=== PATIENT | female | born 1935 | race Caucasian/White ===

== ENCOUNTER → 2018-01-29 | Outpatient (CLI) | payer MEDICARE ==
[~2018-01-29] VITALS: Ht 172.7 cm; Wt 56.2 kg
[~2018-01-29] MED LIST: ACETAMINOPHEN650 M5 PO; ALENDRONATE PO; ASPIRIN325 PO; BETIMOL15 ML OP; BRIMONIDINE TAR1 BO1 OP; CENTRUM SILVER1 EAC4 PO; COUMADIN 5 MG TA5 M1 PO; COZAAR 50 MG TA50 M2 PO; FISH OIL 1,001000 M2; LUMIGAN2.5 M1 OP; PEPCID40 MG PO; PROLIA60 MG/1 ML; SOTALOL 120 MG120 MG PO; TRAVATAN 0.004%5 ML OP; VITAMIN D1000 UNI1; XALATAN2.5 ML OPHTHALMIC; [UNRECOGNIZED DRUG - OTHER]
[2018-01-29 10:30] VITALS: BP 149/75
[2018-01-29 10:36] LABS: HEMATOCRIT 43.8 % (37.0-47.0); HEMOGLOBIN 14.5 gm/dL (12.0-15.0); MCH 32.2 pg (26.0-34.0); MCV 97.5 fL (80.0-100.0); MPV 13.3 fl. (7.2-11.1); RBC 4.49 mil/uL (4.20-5.00); WBC 6.7 thou/uL (4.0-11.0)
[2018-01-29 10:45] LABS: APTT 33.4 Seconds (25.0-31.3); CALCIUM 9.3 mg/dL (8.5-10.1); CREATININE 0.9 mg/dL (0.6-1.3); POTASSIUM 4.1 mmol/L (3.5-5.1); PROTIME 28.5 Seconds (9.20-11.50)
[2018-01-29 11:55] VITALS: BP 143/67
--- NOTE | 2018-02-12 16:28 | CARD ---
[address] [address] CARDIAC CATH REPORT Name: GABE PHOENIX Room: [facility]#: [id number] Admission: 01/29/18 Attend Phys: Vikas Newman MD Discharge: Date of : 34 Report #: [id number] THIS REPORT FOR: //name// APPROVED REPORT Study performed: 01/29/2018 10:29:54 Patient Status: Out-Patient Room #: Event Personnel: Vikas Newman Distance Learning Program Coordinator, Araceli Medina RN RN, Elijah Hannah Monitor, Kendall Wei (Mark) Eamon Harris Diane Monitor Exam: Generator Change for a Dual Chamber Permanent Pacemaker Indications: dual chamber pacemaker generator at elective replacement The patient is a 82 year-old female with a history of symptomatically bradycardia status post dual-chamber pacemaker placement. Conscious Sedation Start time: 11:09 End Time: 11:45 Fentanyl 25 mcg Versed 1 mg Implanted Devices: Biotronik Eluna 8 DRT, model #585861, serial #[id number] dual-chamber pulse generator Explanted Devices: Medtronic Adapta, model number ADD RS1, serial number and [id number] dual-chamber pulse generator Procedure The patient underwent informed consent. We discussed the details of the procedure including the risks, which include, but not limited to bleeding, infection, vascular damage, cardiac perforation, and pneumothorax. She understood these risks and was willing to proceed. As such, she was brought to the EP/Cardiac Catheterization laboratory in a fasting and sedated state and prepped and draped in a The patient underwent conscious sedation, with no related complications. The patient was brought to the EP/Cardiac Catheterization laboratory and the left chest and shoulder were prepped and draped in a sterile manner. During this case, Fluoroscopy and visipaque 10cc were used for imaging. After informed consent was obtained the patient was brought to the interventional radiology laboratory. [place] [address] CARDIAC CATH REPORT Name: TROYRHONDA PRIETORAD Hicks Room: [facility]#: [id number] Admission: 01/29/18 Attend Phys: Vikas Newman MD Discharge: Date of : 34 Report #: [id number] with 2% lidocaine. After an initial incision was made over the existing pulse generator the generator was explanted using electrocautery and blunt dissection. The generator was detached from the atrial and ventricular leads. The atrial and ventricular leads were interrogated and found to be functioning appropriately. The device pocket was flushed with antibiotic solution. A new dual-chamber pulse generator was attached the atrial and ventricular lead. The pulse generator and redundant leads were then placed within the device pocket. The deep tissues were closed with interrupted stitches of 20 absorbable suture. The skin incision was then closed with a single subcuticular stitch of 40 absorbable suture. Several Steri-Strips were placed across the incision and a sterile Telfa dressing covered with a Tegaderm. The patient tolerated the procedure well without complication. Electrode Parameters P Wave: 1.10 mV R Wave: 7.50 mV Atrial Threshold: 1.0 V at 0.40 ms. Ventricular Threshold: 0.6 V at 0.40 ms. 0.6 V at 0.40 ms. Atrial Resistance: 468 ohms Ventricular Resistance: 507 ohms Conclusion 1. Dual chamber pulse generator at elective replacement. 2. Successfull generator replacement. Recommendations 1. Follow up site check in 1 week. <ELECTRONICALLY SIGNED> By: Vikas Newman MD, FACC 02/12/18 1628 27 [id number] Newman MD, FACC /INF
--- NOTE | 2018-02-15 16:18 | H ---
[address] [address] HISTORY AND PHYSICAL Name: GABE PHOENIX Room: [facility]#: [id number] Admission: 01/29/18 Attend Phys: Vikas Newman MD Discharge: Date of : 34 Report #: [id number] THIS REPORT FOR: //name// CC: Adam Atkinson MD [facility] Vikas Leon MD REASON FOR ADMISSION: Dual-chamber pacemaker generator replacement. HISTORY OF PRESENT ILLNESS: The patient is a very pleasant 82-year-old with history of paroxysmal atrial fibrillation and sick sinus syndrome. She has remotely status post dual-chamber pacemaker placement. Her dual chamber pulse generator has reached elective replacement. The patient presents for generator replacement. Presently, she is stable from a cardiac standpoint. She is without cardiac complaint. She is not having palpitations or chest pain. PAST MEDICAL HISTORY: 1. Paroxysmal atrial fibrillation. 2. Sick sinus syndrome with bradycardia. 3. Status post dual-chamber pacemaker placement remotely. 4. Essential hypertension. 5. Long-term use of anticoagulants. FAMILY HISTORY: The patient's father had a heart attack at old age. SOCIAL HISTORY: The patient is a lifelong nonsmoker. She does not drink alcohol. REVIEW OF SYSTEMS: The patient denies weakness, malaise or fatigue. The patient denies hearing loss. The patient denies any visual changes or disturbances. The patient denies chest pain, claudication, dyspnea, palpitations, swelling, or near syncope. The patient denies shortness of breath. The patient denies cough. The patient denies hemoptysis or wheezing. The patient denies polydipsia or polyuria. The patient denies flushing, itching or rash. The patient denies arthritis or myalgias. The patient denies heartburn, melena, nausea and vomiting. The patient denies nocturia. The patient denies dizziness, focal weakness, headaches, lightheadedness, loss of balance or vertigo. The patient denies depression, nervousness or anxiousness. The patient denies environmental allergies. PHYSICAL EXAMINATION: VITAL SIGNS: Stable. Blood pressure 126/82, pulse rate 80. GENERAL: This is a pleasant elderly female in no [place] [address] HISTORY AND PHYSICAL Name: GABE PHOENIX Room: [facility]#: [id number] Admission: 01/29/18 Attend Phys: Vikas Newman MD Discharge: Date of : 34 Report #: [id number]. HEENT: Extraocular muscles intact. Mucous membranes are moist. NECK: Shows no jugular venous distention. There are no carotid bruits. CHEST: Reveals clear lung coreas without wheezes or rales. CARDIAC: Reveals a regular rhythm without gallop or murmur. ABDOMEN: Reveals normal bowel sounds. EXTREMITIES: Show no edema. SKIN: Warm and dry. IMPRESSION AND RECOMMENDATIONS: 1. Dual-chamber pulse generator at elective replacement. 2. Paroxysmal atrial fibrillation. 3. Sick sinus syndrome. 4. Essential hypertension. 5. Long-term use of anticoagulant. PLAN: The patient is being brought to the hospital for elective dual-chamber pulse generator replacement. The patient is currently stable with her other cardiac comorbidities. <ELECTRONICALLY SIGNED> By: Vikas Newman MD, FACC 02/15/18 1618 1518 [id number] Newman MD, FACC /nt
== END | disposition home or self-care (01) ==
LOC: M.CL 09:31
PROVIDERS: Internal Medicine Cardiovascular Disease
DX: Z45.010 Encounter for checking and testing of cardiac pacemaker pulse generator [battery] (principal); I48.91 Unspecified atrial fibrillation; M81.0 Age-related osteoporosis without current pathological fracture; M10.9 Gout, unspecified; Z88.8 Allergy status to other drugs, medicaments and biological substances; Z79.899 Other long term (current) drug therapy; Z79.01 Long term (current) use of anticoagulants; Z98.890 Other specified postprocedural states

== ENCOUNTER 2019-04-14 14:53 | Inpatient (IN) | payer MEDICARE ==
[~2019-04-14] VITALS: Ht 172.7 cm; Wt 57.2 kg
[2019-04-14 15:00] VITALS: BP 112/74
[2019-04-14 15:47] LABS: ABSOLUTE EOSINOPHILS 0.1 thou/uL (0.0-0.7); ABSOLUTE LYMPHOCYTES 0.9 thou/uL (0.8-5.3); ABSOLUTE MONOCYTES 0.6 thou/uL (0.0-1.2); ABSOLUTE NEUTROPHILS 3.4 thou/uL (1.6-8.1); BASOPHILS 0.6 %; EOSINOPHILS 1.5 %; HEMATOCRIT 39.1 % (37.0-47.0); HEMOGLOBIN 13.5 gm/dL (12.0-15.0); LYMPHOCYTES 18.6 %; MCH 33.6 pg (26.0-34.0); MCHC 34.4 g/dL (28.0-37.0); MCV 97.6 fL (80.0-100.0); MONOCYTES 11.3 %; MPV 11.5 fl. (7.2-11.1); NUCLEATED RBCS 0 /100WBC; PLATELET COUNT* 100 thou/uL (150-400); RDW-CV 14.9 % (10.5-14.5)
[2019-04-14 15:57] LABS: CALCIUM 9.3 mg/dL (8.5-10.1); POTASSIUM 4.1 mmol/L (3.5-5.1)
[2019-04-14 16:02] LABS: ALBUMIN 2.8 g/dL (3.4-5.0); TOTAL BILIRUBIN 0.5 mg/dL (<0.1-1.0); TOTAL PROTEIN 7.8 g/dL (6.4-8.2)
[2019-04-14 16:11] LABS: APTT 54.5 Seconds (25.0-31.3); PROTIME 180.3 Seconds (9.20-11.50)
[2019-04-14 16:17] LABS: INR > 18.0
[2019-04-14 17:55] VITALS: BP 112/74
[2019-04-14 18:20] VITALS: BP 132/71
[2019-04-14 19:45] VITALS: BP 101/46
--- NOTE | 2019-04-14 20:00 | NUR ---
PT ADMITTED TO ROOM AT 181, GLASS GLAZIER APPLIED. AT THIS TIME ASSESSMENT COMPLETED. PT ORIENTED ONLY TO PLACE AND PERSON. PLEASANT AND COOPERATIVE. FANI LOWER LEGS WITH 3+ EDEMA, DISCOLORED. FANI BUTTOCKS WITH BREAKDOWN, PT STATED SITS IN CHAIR ALL DAY. PHOTOS TAKEN AND SHOWN TO PT. TELEMETRY ON SHOWING COUPLETS. SEE ADMISSION ASSESSMENT AND HX. WILL CONT TO MONITOR AND ASSIST NEEDED.
[2019-04-15 00:48] VITALS: BP 91/45
[2019-04-15 04:17] VITALS: BP 112/61
[2019-04-15 05:04] LABS: HEMATOCRIT 38.5 % (37.0-47.0); HEMOGLOBIN 12.9 gm/dL (12.0-15.0); MCH 32.8 pg (26.0-34.0); MCHC 33.6 g/dL (28.0-37.0); MCV 97.6 fL (80.0-100.0); MPV 10.5 fl. (7.2-11.1); RBC 3.95 mil/uL (4.20-5.00); RDW-CV 14.7 % (10.5-14.5); WBC 3.9 thou/uL (4.0-11.0)
[2019-04-15 05:12] LABS: PROTIME 103.5 Seconds (9.20-11.50)
[2019-04-15 05:25] LABS: ALBUMIN 2.6 g/dL (3.4-5.0); CALCIUM 9.4 mg/dL (8.5-10.1); CREATININE 0.9 mg/dL (0.6-1.3); POTASSIUM 4.7 mmol/L (3.5-5.1); TOTAL BILIRUBIN 0.4 mg/dL (<0.1-1.0); TOTAL PROTEIN 7.5 g/dL (6.4-8.2)
--- NOTE | 2019-04-15 06:57 | NUR ---
AWAKE MOST OF NIGHT. ASSISTED TO BSC. REMAINS CONFUSED BUT COOPERATIVE. NO CHANGE IN ASSESSMENT. HOURLY ROUNDING OBSERVED.
[2019-04-15 08:00] VITALS: BP 137/53
[2019-04-15 11:30] LABS: CALCIUM 9.2 mg/dL (8.5-10.1); CREATININE 0.9 mg/dL (0.6-1.3); MAGNESIUM 1.6 mg/dL (1.8-2.4); POTASSIUM 4.2 mmol/L (3.5-5.1)
--- NOTE | 2019-04-15 11:40 | NUR ---
WOUND CARE NOTE: CONSULT RECEIVED FOR WOUNDS TO FANI BUTTOCKS. PATIENT PRESENTS WITH TWO AREAS OF BREAKDOWN TO BILATERAL BUTTOCKS. LEFT BUTTOCK: STAGE 2 PRESSURE ULCER. PARTIAL THICKNESS TISSUE LOSS. MOIST, RED WOUND BED. NO DRAINAGE NOTED AT THIS TIME. WOUND MEASURES 2.5X1X0.1. APPLIED EXUDERM. RIGHT BUTTOCK: STAGE 3 PRESSURE ULCER. FULL THICKNESS TISSUE LOSS. MOIST, RED, YELLOW WOUND BED. VISIBLE SUB Q TISSUE. NO ACTIVE DRAINAGE NOTED. WOUND MEASURES 1X0.9X0.2. APPLIED AQUACEL AG TO WOUND BED. COVERED WITH EXUDERM. SECURED WITH TEGADERM. PATIENT ADMITS TO SITTING A LOT AT HOME. STATES SHE HAS BEEN USING OVER THE COUNTER STUFF TO HELP IT WITHOUT SUCCESS. EDUCATED PATIENT ON DRESSING SELECTIONS, NUTRTION FOR WOUND HEALING, AND OFFLOADING. COMMUNICATED UNDERSTANDING. RECOMMEND ENCOURAGE GOOD NUTRTION/HYDRATION FOR WOUND HEALING TURN Q2 HOURS-KEEP OFF WOUND WAFFLE CUSHION WHEN IN CHAIR LIMIT TIME IN CHAIR ENCOURAGE PATIENT TO SHIFT WEIGHT WHEN IN CHAIR
[2019-04-15 12:19] LABS: URINE BILIRUBIN NEGATIVE (Negative); URINE BLOOD NEGATIVE (Negative); URINE CLARITY CLEAR; URINE COLOR YELLOW; URINE GLUCOSE-RANDOM NEGATIVE (Negative); URINE KETONES NEGATIVE (Negative); URINE LEUKOCYTES NEGATIVE (Negative); URINE NITRITE NEGATIVE (Negative); URINE PROTEIN NEGATIVE (Negative); URINE SPECIFIC GRAVITY 1.015 (1.005-1.030); URINE UROBILINOGEN 0.2 E.U./dl (0.2-1.0)
[2019-04-15 12:23] VITALS: BP 107/51
--- NOTE | 2019-04-15 13:46 | NUR ---
MET WITH PT AND SPOKE WITH SON/DANILO WHO LIVES IN [place] OVER THE PHONE. PT LIVES ALONE, IS NORMALLY FAIRLY INDEPENDENT, STILL DRIVES. DOES OWN ADLS, COOKS AND IS ABLE TO MANAGE. SHE GOES TO LAB AT [facility] TO GET INR CHECKS, WAS ADMITTED WITH HIGH INR. PER DANILO, HE WAS IN TOWN 3 WEEKS AGO AND THEN AGAIN A WEEK LATER. HE STATED AT 1ST VISIT PT WAS DOING 'FINE', BUT FROM CONVERSATIONS AND HIS VISIT A WEEK LATER, HE NOTICED SOME CHANGES IN HER BEING WEAKER AND SOME CONFUSION. HE HIRED A CG/PARDEEP TO CHECK ON PT FOR HIM WELL THE NEIGHBOR/CARLOS. HE STATES PT NORMALLY EATS WELL AND HAS ALWAYS BEEN 'THIN' AND MANAGES HERSELF INCLUDING DRIVING WITHOUT DIFFICULTY. HE WAS UNSURE IF SHE HAS A DPOA. UPDATED DR OGLESBY OF CONVERSATION, WILL FOLLOW
[2019-04-15 16:56] VITALS: BP 106/54
--- NOTE | 2019-04-15 17:44 | NUR ---
ASSUSSMED CARE APPROX 0730. REASSESSMENT COMPLETED CHARTED. MEDICATIONS GIVEN CHARTED. PT UP TO BEDISDE CHAIR THIS AM. PT EDUCATION ABOUT KEEPING PRESSURE OFF OF BOTTOM , VERBALIZED UNDERSANDING, NEEDS REINFORCEMENT. DISCUSSED CARE WITH PTS SON THIS AFTERNOON, PTS SON SAID HE IS DRIVING IN FROM OUT OF TOWN AND WILL BE HERE THIS EVENING. HOURLY ROUNDING FOR PT SAFTEY, PERSONAL ITEMS AND CALL LIGHT WITHIN REACH. SAFETY PRECAUTIONS IN PLACE.
[2019-04-15 20:00] VITALS: BP 98/56
[2019-04-16 00:39] VITALS: BP 101/45
[2019-04-16 04:00] VITALS: BP 99/49
[2019-04-16 05:27] LABS: HEMATOCRIT 40.7 % (37.0-47.0); HEMOGLOBIN 13.8 gm/dL (12.0-15.0); MCH 33.1 pg (26.0-34.0); MCV 97.6 fL (80.0-100.0); RBC 4.17 mil/uL (4.20-5.00); RDW-CV 15.4 % (10.5-14.5)
[2019-04-16 05:31] LABS: PROTIME 20.3 Seconds (9.20-11.50)
[2019-04-16 05:43] LABS: ALBUMIN 2.7 g/dL (3.4-5.0); CALCIUM 8.8 mg/dL (8.5-10.1); CREATININE 0.7 mg/dL (0.6-1.3); POTASSIUM 4.1 mmol/L (3.5-5.1); TOTAL PROTEIN 7.8 g/dL (6.4-8.2)
--- NOTE | 2019-04-16 07:40 | NUR ---
PT IS A+O X 2-3. PT KEEPS TRYING TO GET OUT OF BED. BED ALARM ON. PT STATES, "I KEEP FORGETING TO CALL BEFORE I GET UP." PT ALSO ASKED A STAFF MEMBER "CAN YOU SHOW ME WHERE THE BUTTON IS TO TURN OFF THE BED ALARM." PT;S ROOM/BED IN VIEW OF NURSES STATION. PT TRACING COUPLETS IN THE 80'S THROUGHOUT THE NIGHT. CALL LIGHT IN REACH. HOURLY ROUNDING FOR SAFETY.
[2019-04-16 08:00] VITALS: BP 116/67
--- NOTE | 2019-04-16 08:18 | CON ---
[address] [address] CONSULTATION Name: GABE PHOENIX Room: [address] IN M.R.#: [id number] Admission: 04/14/19 Attend Phys: Fabiola Whiting Discharge: Date of : 34 Report #: [id number] THIS REPORT FOR: //name// CC: Kari Lakhani DO Rik Daniels INDICATION: Supratherapeutic INR. HISTORY OF PRESENT ILLNESS: The patient is an 83-year-old white female who was admitted to the hospital after being found to have an INR of approximately 18. She also was complaining of some lower extremity swelling. She has a history of paroxysmal atrial fibrillation. She is status post pacemaker placement for sick sinus syndrome. She received vitamin K in the Emergency Room to reverse her INR. Her INR is presently trending down, but still supratherapeutic. She is not having bleeding problems. Presently, her warfarin is on hold. She is without other cardiac complaint at this time. PAST MEDICAL HISTORY: 1. Paroxysmal atrial fibrillation. 2. Sick sinus syndrome with bradycardia. 3. Status post dual chamber pacemaker placement. 4. Chronic anticoagulation. 5. Hypercoagulable state due to paroxysmal atrial fibrillation. FAMILY HISTORY: The patient's father had heart attack. SOCIAL HISTORY: The patient quit smoking a long time ago. She does not drink alcohol. ALLERGIES: No known drug allergies. CURRENT MEDICATIONS: Prolia 60 mg monthly, latanoprost eyedrops 1 drop at bedtime, sotalol 120 mg b.i.d., warfarin 5 mg daily. REVIEW OF SYSTEMS: A 14-point review of systems is positive for nonproductive cough, palpitations, dyspnea on exertion, osteoporosis, reading glasses, history of glaucoma. Otherwise, 14-point review of systems was unremarkable. PHYSICAL EXAMINATION: VITAL SIGNS: Blood pressure 137/53, pulse is in the 70s and irregularly irregular. GENERAL: This is a thin elderly female in no distress. Mood and affect appropriate. HEENT: Extraocular muscles intact. NECK: Shows no jugular venous distention. CHEST: Reveals diminished breath sounds, especially in the left base[place] [address] CONSULTATION Name: GABE PHOENIX Room: [address] IN [facility].#: [id number] Admission: 04/14/19 Attend Phys: Fabiola Whiting Discharge: Date of : 34 Report #: [id number] appreciate rales. CARDIOVASCULAR: Reveals an irregularly irregular rhythm without gallop. I do not appreciate a murmur. ABDOMEN: Reveals a thin abdomen, soft, nontender. Bowel sounds present. EXTREMITIES: Show 1+ ankle and lower tibial edema bilaterally. SKIN: Dry. EKG shows what appears to be a sinus rhythm with atrial bigeminy. I do not appreciate acute changes. LABORATORY DATA: Reviewed. Sodium 134, potassium 4.2, chloride 100, bicarbonate 26, BUN 19, creatinine 0.9, serum glucose 99. INR is presently 11.0. White blood cell count 3.9, hemoglobin 12.9, platelet count 90,000. IMPRESSION AND RECOMMENDATIONS: 1. Supratherapeutic INR. Warfarin presently held. She has been given vitamin K for reversal. She remains supratherapeutic at this time. Repeat INR in a.m. She is not having bleeding problems at this time. No need for more aggressive reversal. 2. Paroxysmal atrial fibrillation. I have elected to increase her sotalol to 160 mg twice daily and discontinue the diltiazem as this may be contributing to some lower extremity edema. 3. 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 We will discontinue diltiazem at this time. 4. History of sick sinus syndrome, status post dual chamber pacemaker placement, remote interrogation shows normal function. 5. History of hypertension. Blood pressure is adequately controlled presently. <ELECTRONICALLY SIGNED> By: Vikas Newman MD, FACC 04/16/19 0818 1150 [id number] Newman MD, FACC /nt
[2019-04-16 11:56] VITALS: BP 96/62
--- NOTE | 2019-04-16 12:10 | NUR ---
MET WITH PT AND SON/DANILO IN ROOM TO FURTHER DISCUSS DC PLANNING. PT WAS UP WALKING WITH THERAPY TODAY ALSO, USING WALKER. DID C/O SHE WAS 'TIRED.' SON FELT PT 'FINE AND NORMAL' TODAY. PT STATED SHE FELT SOME BETTER BUT STILL NOT ABLE TO ANSWER ALL QUESTIONS AND WHILE OFFERING DIFFERENT SUPPORT OPTIONS AT HOME, PT KEPT STATING, 'I'LL HAVE TO THINK ABOUT THAT'. SON INTERESTED IN GETTING ADD'L HELP AT HOME. HE HAS HIRED A CAREGIVER THRU [employer] TO CHECK ON PT AND ASSIST WITH IADLS. DISCUSSED POSSIBLE SNF VS HH AND [facility]. GAVE INFO ON ALL, PT REFUSES TO CONSIDER SNF. SON PLANS TO STAY THRU NEXT WEEK WITH PT BEFORE RETURNING HOME TO [place]. WAS OPEN TO TALK WITH HH [facility], NO PREFERENCE. CALLED AND HAD [facility] SEE PT/SON. THEY ARE ABLE TO ACCEPT PT AT DC. ALSO DISCUSSED DPOA AND GAVE PAPERWORK TO PT TO CONSIDER. PT SEEMED SOMEWHAT OVERWHELMED WITH INFO AND KEPT STATING 'I'LL BE FINE.' WILL FOLLOW
--- NOTE | 2019-04-16 16:32 | 2DMMODE ---
[place] [address] 2 D/M-MODE ECHOCARDIOGRAM Name: GABE PHOENIX [facility] Room: 229-P ADM IN .R.#: [id number] Admission: 04/14/19 Attend Phys: Rik Daniels Discharge: Date of : 34 Date of Service: 04/16/19 1632 Report #: [id number] THIS REPORT FOR: //name// APPROVED REPORT Study performed: 04/16/2019 14:38:27 EXAM: Comprehensive 2D, Doppler, and color-flow Echocardiogram Patient Location: In-Patient Room #: 229 Status: routine BSA: 1.67 HR: 102 bpm BP: 96/62 mmHg Rhythm: NSR Other Information Study Quality: Good Indications Pacemaker Hypoxia 2D Dimensions IVSd: 7.68 (7-11mm) LVOT Diam: 19.50 (18-24mm) LVDd: 31.30 mm PWd: 7.54 (7-11mm) Ascending Ao: 33.39 (22-36mm) LVDs: 14.62 (25-40mm) Aortic Root: 30.62 mm Volumes Left Atrial Volume (Systole) LA ESV Index: 45.50 mL/m2 Aortic Valve AoV Peak Jesse.: 1.11 m/s AO Peak Gr.: 4.89 mmHg LVOT Max P.22 mmHg AO Mean Gr.: 2.57 mmHg LVOT Mean P.85 mmHg LVOT Max V: 1.03 m/s AO V2 VTI: 19.54 cm LVOT Mean V: 0.62 m/s ARIC (VTI): 3.08 cm2 LVOT V1 VTI: 20.16 cm TDI Lateral E' Jesse.: 0.06 m/[place] [address] 2 D/M-MODE ECHOCARDIOGRAM [facility] Room: [address] IN M.R.#: [id number] Admission: 04/14/19 Attend Phys: Rik Daniels Discharge: Date of : 34 Date of Service: 04/16/19 1632 Report #: [id number] Pulmonary Valve PV Peak Jesse.: 0.74 m/s PV Peak Gr.: 2.20 mmHg Tricuspid Valve RAP Estimate: 5.00 mmHg TR Peak Gr.: 28.83 mmHg RVSP: 33.00 mmHg PA Pressure: 33.00 mmHg Left Ventricle The left ventricle is normal size. There is normal LV segmental wall motion. There is normal left ventricular wall thickness. Left ventricular systolic function is normal. The left ventricular ejection fraction is within the normal range. LVEF is 65-70%. Right Ventricle Right ventricle is dilated. The right ventricular systolic function is normal. Pacemaker lead is present in the right ventricle. Atria Left atrium is moderately dilated. Right atrium is dilated. Aortic Valve The aortic valve is normal in structure. No aortic regurgitation is present. There is no aortic valvular stenosis. Mitral Valve The mitral valve is normal in structure. Trace mitral regurgitation. No evidence of mitral valve stenosis. Tricuspid Valve The tricuspid valve is normal in structure. Moderate tricuspid regurgitation. estimated pa pressure 40 mm Hg Pulmonic Valve The pulmonary valve is normal in structure. Mild pulmonic regurgitation. Great Vessels The aortic root is normal in size. IVC is normal in size and collapses >50% with inspiration. Pericardium There is no pericardial effusion. <Conclusion> LVEF is 65-70%. [place] [address] 2 D/M-MODE ECHOCARDIOGRAM Name: GABE PHOENIX [facility] Room: [address] IN M.R.#: [id number] Admission: 04/14/19 Attend Phys: Rik Daniels Discharge: Date of : 34 Date of Service: 04/16/191631 Report #: [id number] Right ventricle is dilated. Left atrium is moderately dilated. Right atrium is dilated. Moderate tricuspid regurgitation. estimated pa pressure 40 mm Hg <ELECTRONICALLY SIGNED> By: Jay Bain MD, [facility] 04/16/191631 31 31 Jay Bain MD, FACC /INF
[2019-04-16 17:08] VITALS: BP 88/53
--- NOTE | 2019-04-16 18:00 | NUR ---
PT VSS, REASSESSMENT CHARTED, VPACED, COUPLETS ON TELE, PT HIGH FALL RISK, CALL LIGHT AND POSSESSIONS WITHIN REACH, HOURLY ROUNDING PERFORMED. A&OX3
[2019-04-17] VITALS: BP 124/70
[2019-04-17 03:45] VITALS: BP 109/71
[2019-04-17 05:50] LABS: HEMATOCRIT 40.7 % (37.0-47.0); HEMOGLOBIN 13.4 gm/dL (12.0-15.0); MCH 32.7 pg (26.0-34.0); MCHC 32.9 g/dL (28.0-37.0); MCV 99.4 fL (80.0-100.0); RBC 4.1 mil/uL (4.20-5.00); RDW-CV 15.3 % (10.5-14.5); WBC 3.6 thou/uL (4.0-11.0)
[2019-04-17 06:00] LABS: INR 1.4; PROTIME 14.3 Seconds (9.20-11.50)
[2019-04-17 06:05] LABS: ALBUMIN 2.5 g/dL (3.4-5.0); CREATININE 0.8 mg/dL (0.6-1.3); MAGNESIUM 1.8 mg/dL (1.8-2.4); TOTAL BILIRUBIN 0.9 mg/dL (<0.1-1.0); TOTAL PROTEIN 7.5 g/dL (6.4-8.2)
[2019-04-17 08:00] VITALS: BP 111/65
[2019-04-17] MEDS ORDERED: SORINE 80 MG TA80 M1 PO (09:38)
[2019-04-17] MEDS ORDERED: LANOXIN125 MCG PO (09:38)
[2019-04-17] MEDS ORDERED: ELIQUIS5 MG PO (09:38)
[2019-04-17 11:39] VITALS: BP 102/68
[2019-04-17 12:50] LABS: % SATURATION 40 % (20-39); IRON 100 ug/dL (50-175)
[2019-04-17 16:35] VITALS: BP 112/72
[2019-04-17 20:00] VITALS: BP 132/90
--- NOTE | 2019-04-17 20:46 | NUR ---
PT VSS, COUPLET AND SA ON TELE, A&OX4 WITH CONFUSION AND IMPULSIVITY. HIGH FALL RISK, PT VOIDS IN BEDSIDE COMMODE, POSSESSION AND CALL LIGHT WITHIN REACH. HOURLY ROUNDING PERFORMED.
[2019-04-17 22:06] LABS: IgA 705 mg/dL (64-422); IgG 1881 mg/dL (700-1600); IgM 75 mg/dL (26-217)
[2019-04-18] VITALS: BP 109/63
[2019-04-18 04:00] VITALS: BP 100/49
[2019-04-18 04:50] LABS: HEMATOCRIT 37.8 % (37.0-47.0); HEMOGLOBIN 12.3 gm/dL (12.0-15.0); MCH 32.3 pg (26.0-34.0); MCHC 32.6 g/dL (28.0-37.0); MCV 99.1 fL (80.0-100.0); MPV 11.3 fl. (7.2-11.1); RBC 3.82 mil/uL (4.20-5.00); RDW-CV 15.2 % (10.5-14.5); WBC 3.7 thou/uL (4.0-11.0)
[2019-04-18 04:58] LABS: INR 1.6; PROTIME 16.6 Seconds (9.20-11.50)
[2019-04-18 05:11] LABS: ALBUMIN 2.4 g/dL (3.4-5.0); CALCIUM 8.9 mg/dL (8.5-10.1); CREATININE 0.8 mg/dL (0.6-1.3); MAGNESIUM 1.8 mg/dL (1.8-2.4); POTASSIUM 4.2 mmol/L (3.5-5.1); TOTAL BILIRUBIN 0.8 mg/dL (<0.1-1.0); TOTAL PROTEIN 7.2 g/dL (6.4-8.2)
[2019-04-18 08:00] VITALS: BP 93/60
[2019-04-18 11:55] VITALS: BP 93/60
--- NOTE | 2019-04-18 11:56 | NUR ---
DISCUSSED WITH DR ZHU, PLAN FOR DC TODAY WITH HH. MET WITH PT AND SON/DANILO. PT RELUCTANT BUT AGREED TO HH TO 'PLEASE SON'. NOT READY TO COMPLETE DPOA PAPERS, PT STATED FELT IT WOULD 'DEFAULT' TO HER SON HE'S AN ONLY CHILD. EXPLAINED IMPORTANCE OF HAVING DOCUMENT AGAIN. PT JUST KEPT SAYING, 'IM NOT READY, I'LL THINK ABOUT IT.' PT PLANS TO RETURN HOME, SON TO STAY WITH HER FOR A SHORT WHILE AND THANKFUL TO HAVE HH ARRANGED. NOT INTERESTED IN ANY OTHER SERVICES AT THIS TIME. CALL TO NOTIFY [facility], WILL FAX ORDERS WHEN COMPLETE
[2019-04-18] MEDS ORDERED: LEVAQUIN 500 M500 M3 PO (12:01)
[2019-04-18 12:07] VITALS: BP 117/63
[2019-04-18 12:55] VITALS: BP 117/63; BP 93/60
--- NOTE | 2019-04-18 14:55 | NUR ---
ASSUMED PT CARE AT 0730. ASSESSMENT COMPLETED CHARTED. ABLE TO MAKE NEEDS KNOWN. SON AT BEDSIDE. NO C/O PAIN OR DISCOMFORT. UP WITH WALKER TO BATHROOM. DISCHARGE APPROVED, DISCHARGE PAPERWORK COMPLETED, REMOVED IV AND HEART MONITOR. CALLED IN PRESCRIPTIONS TO PHARMACY. NO COMMENTS, QUESTIONS OR CONCERNS NOTED. PT WAS WHEELED OUT TO SON'S CAR AT AROUND 1430 BY NURSING STAFF.
[2019-04-19 02:06] LABS: HEPATITIS B SURFACE AG Negative (Negative)
--- NOTE | 2019-04-19 10:43 | CON ---
[address] [address] CONSULTATION Name: GABE PHOENIX Room: [address] IN M.R.#: [id number] Admission: 04/14/19 Attend Phys: Fabiola Whiting Discharge: 04/18/19 Date of : 34 Report #: [id number] THIS REPORT FOR: //name// CC: Kari Lakhani DO Rik Daniels DICTATED BY: Skye Gonsalves [facility] DATE OF SERVICE: 04/17/2019 Please note at the time of this dictation, the patient was seen and physically examined by myself. REASON FOR CONSULTATION: Cirrhosis of the liver. HISTORY OF PRESENT ILLNESS: This is an 83-year-old female who was called by her PCP to go to the Emergency Room because she had a supratherapeutic INR of 18 on admission. The patient is currently on warfarin at home to manage her atrial fibrillation. She was also complaining that she had some lower extremity swelling as well. The patient does live at home and does have a neighbor that checks on her, but she has had no complaints. The patient denies any nausea or vomiting, no abdominal pain. She states her bowels move daily, soft and formed. The patient did have a colonoscopy with us back in 2012, which was completely normal and no history of any polyps. The patient states she has never been told that she has had a fatty liver or any other reasoning that having cirrhosis of the liver is totally new to her. The patient has not ever drank alcohol either. ALLERGIES: No known drug allergies. MEDICATIONS: From home are sotalol, Xalatan eye drops, warfarin and Prolia. PAST MEDICAL HISTORY: Atrial fibrillation, osteoporosis and glaucoma. PAST SURGICAL HISTORY: Pacemaker. FAMILY HISTORY: Negative for any GI or female cancers. SOCIAL HISTORY: The patient lives alone. Denies any alcohol use. Denies any illegal drug use and she smoked years ago. REVIEW OF SYSTEMS: Twelve-point review of systems is essentially negative except what is mentioned in the HPI. PHYSICAL EXAMINATION: VITAL SIGNS: Temperature 36.3, pulse 80, respirations 18 [place] [address] CONSULTATION Name: GABE PHOENIX Room: [address] IN [facility].#: [id number] Admission: 04/14/19 Attend Phys: Fabiola Whiting Discharge: 04/18/19 Date of : 34 Report #: [id number] 111/65. HEART: Regular rate and rhythm. LUNGS: Diminished, but clear. ABDOMEN: Soft, positive bowel sounds in all 4 quadrants with no masses or tenderness noted. LABORATORY DATA: Hemoglobin is 13.4, white count is 3 and platelets are 93. GFR is 68. PT is 14.3, INR is 1.4, total bilirubin is 0.9, alkaline phosphatase 117, ALT 53, AST is 63. CT of the abdomen and pelvis showed nodular liver with diverticulosis and a left pleural effusion with some mild body wall edema and mesenteric edema noted. IMPRESSION: 1. Cirrhosis. 2. Anticoagulant therapy, warfarin, atrial fibrillation, supratherapeutic on admission. 3. Elevated liver function tests. 4. Thrombocytopenia. PLAN: 1. Ultrasound of the abdomen with Dopplers. 2. Labs: Acute hepatitis panel, alpha-1 antitrypsin level, alpha fetoprotein, antimitochondrial antibody, antinuclear antibody, antismooth muscle antibody in serum or plasma, iron, TIBC and ferritin and quantitative IgA, IgG and IgM. 3. The patient will need a surveillance EGD for varices. 4. Further recommendations to be made once Dr. Reese sees the patient and all the above have been noted. Thank you for allowing us to participate in this patient's care. Please do not hesitate to call with any questions in regard to this consult. <ELECTRONICALLY SIGNED> By: Silverio Reese DO 04/19/19 1043 1156 [id number] Reese DO /nt
--- NOTE | 2019-04-19 19:25 | CON ---
[address] [address] CONSULTATION Name: GABE PHOENIX Room: [address] IN M.R.#: [id number] Admission: 04/14/19 Attend Phys: Fabiola Whiting Discharge: 04/18/19 Date of : 33 Report #: [id number] THIS REPORT FOR: //name// CC: Kari Lakhani Rik Daniels DATE OF SERVICE: 04/16/2019 HISTORY OF PRESENT ILLNESS: This is an 83-year-old female patient who was seen by me for memory disturbances and confusion. This patient does not believe that she has anything wrong with her. She has a history of atrial fibrillation and she is in for supratherapeutic INR. It is not clear if she was taking her medication properly. Nobody else is there to provide the history. The patient has a son who lives outside the town. REVIEW OF SYSTEMS: I carried out the 14-point review of system in this patient. It is difficult to tell in this patient, she does have a history of atrial fibrillation. She is on Coumadin, and she did have some edema in the lower extremities, that was a relevant 14-point review of system. When she came in, she appeared to be confused. PAST MEDICAL HISTORY: Positive for atrial fibrillation. FAMILY HISTORY: According to her, is negative for any stroke. SOCIAL HISTORY: She apparently lives by herself, but the neighbor checks on it and the son lives out of state, but I need to confirm that. PHYSICAL EXAMINATION: Indicate she is alert. She is responsive. Her speech looks intact. Her memory appeared to be diminished, but she can tell me what month it is. She could not tell me the exact date. Cranial nerve examinations appear unremarkable. Strength, sensation, reflexes, and tone symmetrical. I could not look at the fundus. There is no cerebellar sign. The patient has atrial fibrillation. She does not appear to be in respiratory difficulty. She is a thin individual. Her blood pressure is 88/53, respirations 16, pulse is 85, temperature is 98. Blood pressure has fluctuated, but has stayed low. LABORATORY DATA: Her WBC count is 4. Her INR is 2 now. PT was 180.3 when she came in. She has not had any imaging studies of the brain. IMPRESSION: Pretty difficult to form in this patient. This patient does appear to be having cognitive deficit and needs a formal neuropsychological testing to evaluate for any cognitive disorders including dementia or minimum cognitive disorder and that will decide the living arrangement. No neuropsychologist comes here. We can ask speech therapy to do screening tests, [place] [address] CONSULTATION Name: GABE PHOENIX [facility] Room: [address] IN M.R.#: [id number] Admission: 04/14/19 Attend Phys: Fabiola Whiting Discharge: 04/18/19 Date of : 33 Report #: [id number] has to be done as an outpatient. I will get a CT scan done, we will get a vitamin B12 done, and I will discuss this patient with you tomorrow. <ELECTRONICALLY SIGNED> By: Mustapha Reynolds MD 04/19/19 1925 1802 [id number] Reynolds MD /nt
--- NOTE | 2019-04-19 19:25 | EEG ---
[address] [address] EEG STUDY REPORT Name: GABE PHOENIX Room: [address] IN M.R.#: [id number] Admission: 04/14/19 Attend Phys: Fabiola Whiting Discharge: 04/18/19 Date of : 33 Report #: [id number] THIS REPORT FOR: //name// CC: Kari Lesvia Daniels DATE OF SERVICE: 04/16/2019 This patient is being evaluated for the possibility of confusion. EEG was done by placing the electrodes by standard 10/20 system of electrode placement. Both referential and sequential montages were used for recording. Background activity appeared to be about 8-9 Hz and 30 microvolt. It is intermixed with theta range slowing on both sides. Photic stimulation was unremarkable. No active epileptiform activity was noticed. IMPRESSION: This patient's EEG is intermixed with some theta range slowing on both sides. That is a nonspecific abnormality, which can occur with drowsiness, effect of psychotropic medication, dementia, encephalopathy. The finding is nonspecific. Clinical correlation is recommended. <ELECTRONICALLY SIGNED> By: Mustapha Reynolds MD 04/19/19 1925 1710 [id number] Reynolds MD /nt
[2019-04-22 13:10] LABS: ANA INTERPRETATION Negative (Negative)
--- NOTE | 2019-04-26 06:59 | CON ---
[address] [address] CONSULTATION Name: GABE PHOENIX Room: [address] IN M.R.#: [id number] Admission: 04/14/19 Attend Phys: Fabiola Whiting Discharge: 04/18/19 Date of : 34 Report #: [id number] THIS REPORT FOR: //name// CC: Kari Daniels REQUESTING PHYSICIAN: Camilla Kebede MD REASON FOR CONSULTATION: Abnormal CAT scan, probable mass. DISCUSSION: The patient is an 83-year-old woman who was admitted to this facility after being contacted by her primary care physician due to a markedly elevated INR. A neighbor did bring her in. Her INR was elevated. Per notes, she was confused. Had other abnormalities noted. Apparently, her mental status did improve. She has been seen by Neurology. X-ray was consistent with pneumonia and she has been treated for that. Chest x-ray was abnormal. Followed up by a CT scan of her chest, which was done yesterday. It was abnormal, revealing a moderate size right pleural effusion. Also had a large mass in her right middle lobe. Retrospectively, does appear some chest imaging done last year did reveal an opacity in the right middle lobe area. Unknown if she had any followup studies in that regard. She is a remote smoker, quitting greater than 20 years ago. Her was a smoker, also until he . He around 20-25 years ago as well. She denies having any prior episodes of pneumonia or TB. Denies having any sputum production at this time. Her son notes she did have a chronic cough at home, but overall seems to have improved since she has been in the hospital. Do note her son lives up in [place], does talk her on the phone intermittently, does come down to help with some of her needs. The time I saw her this morning, she was indicating that she was ready to leave the hospital and did not want additional testing done. She denies any history of TB. Again, no pneumonias. Remote smoker. She denies having any mammograms done and states she just had not wanted them done. During this hospital stay, she was noted to have other abnormalities. Has changes of cirrhosis. 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 She apparently is a lifelong nondrinker. She does have a history of atrial fibrillation, which is why she was on the warfarin. She follows with Dr. Newman at all. Unfortunately, she did not have any issues with bleeding when her INR was so high. PAST MEDICAL HISTORY: Remarkable for tachybrady syndrome. She has atrial fibrillation. Has pacemaker in place. Carries a diagnosis of hypertension. Did have a colonoscopy 6 years ago, [place] [address] CONSULTATION Name: GABE PHOENIX Room: [address] DIS IN M.R.#: [id number] Admission: 04/14/19 Attend Phys: Fabiola Whiting Discharge: 04/18/19 Date of : 33 Report #: [id number] REVIEW OF SYSTEMS: KAMERON was done. I do question the reliability of some of her answers. She is focused on being discharged today. Continues to inform me that "everything is fine." She denies any weight loss, though she does appear quite thin. Her son notes she has been extremely thin her entire life. Not aware of any coughing or choking, difficulty with p.o. intake. Her son notes she did have cough at home, which has been present for quite some time. It is better in the hospital. She denies this. She denies any chest pain. She has had lower extremity edema, which has improved since admission. SOCIAL HISTORY: She is a . Former smoker as noted. Also had significant secondhand smoke exposure. FAMILY HISTORY: Positive for heart disease. Negative for strokes, cancers. PHYSICAL EXAMINATION: GENERAL: The patient was seen after she had exited the bathroom with help. Ambulated over to a chair, use a walker. Her gait does appear somewhat hesitant. She was in no acute distress. Was on room air. HEENT: Head is normocephalic. Sclerae nonicteric. Mucous membranes a little dry. She is quite thin. Appears to have muscle wasting. Does appear cachectic. NECK: Negative for adenopathy. Neck veins are little full. HEART: Irregularly irregular. No S3 is heard. LUNGS: Sounds are clear with some decreased breath sounds in the bases, right greater than left. Minimal dullness to percussion. No E to A changes. EXTREMITIES: She has no clubbing. Radial pulses are present. ABDOMEN: Relatively soft. LOWER EXTREMITIES: She does have trace edema noted. SKIN: Turgor is fair. LABORATORY AND X-RAY FINDINGS: There is a mass in her right middle lobe. Moderate size right pleural effusion. White blood cell count 3700, hemoglobin 12.3, hematocrit 37.8, platelets are only 99,000. On admission, her INR was greater than 18. This morning it is 1.6. BUN 16, creatinine 0.8. AST 55, ALT 42, alkaline phosphatase 110. Albumin 2.4. Prealbumin 11.6. Ammonia level 44. Hepatitis screen is pending. IgG markedly elevated at 1881, IgA at 705, IgM at 75. IMPRESSION: 1. Right middle lobe mass. Heart is quite dense and mass-like. Could be inflammatory, I am suspicious she could have an underlying malignant process. Does have an associated pleural effusion. This could be parapneumonic, could also potentially be malignant. 2. Cirrhosis. 3. Atrial fibrillation, has been on chronic anticoagulation therapy, [place] [address] CONSULTATION Name: GABE PHOENIX Room: [address] IN [facility].#: [id number] Admission: 04/14/19 Attend Phys: Fabiola Whiting Discharge: 04/18/19 Date of : 33 Report #: [id number] with supratherapeutic INR, now improved. She is on Eliquis. 4. Protein-calorie malnutrition. 5. Probable dementia. 6. Overall does appear that she does have some increased risk, complications relating to a fall. Appears to have fairly limited insight. RECOMMENDATIONS: 1. Discussed CT findings with the patient and her son. At this juncture, she is quite emphatic. She does not want any additional testing done. In fact, had not wanted to proceed with a CT head, which has been requested. Emphatic that she wants to go home. 2. Depending on what her wishes are in the future, could consider initially thoracentesis on the right side, assuming she continues to have at least a moderate size right pleural effusion. Cytology is negative, could then consider bronchoscopy. Again, however, it depends on whether or not she wishes to proceed with diagnostic procedures. Not clear if she would want to treat potential malignant process. 3. Discussed with Dr. Kebede. Also with her son. If she is discharged, follow up with Dr. Lakhani. Consider followup imaging in the future to reassess findings, but again dependent on what she is willing to proceed with. 4. We can see again on a p.r.n. basis. <ELECTRONICALLY SIGNED> By: Kendall English MD 04/26/19 0659 1233 [id number] Rider MD /nt
== END 2019-04-18 14:44 | disposition home health service (06) | DRG 177 ==
LOC: M.ERS 14:53 → M.2W 16:21 → M.TBA-ER 16:21 → M.2W 18:17
PROVIDERS: Family Medicine; Internal Medicine; Nurse Practitioner Adult Health; Nurse Practitioner Family; ADMIT Internal Medicine
DX: J15.6 Pneumonia due to other Gram-negative bacteria (principal); G93.41 Metabolic encephalopathy; E44.0 Moderate protein-calorie malnutrition; E87.1 Hypo-osmolality and hyponatremia; D68.59 Other primary thrombophilia; Z68.1 Body mass index [BMI] 19.9 or less, adult; I48.0 Paroxysmal atrial fibrillation; I10 Essential (primary) hypertension; I49.5 Sick sinus syndrome; E83.42 Hypomagnesemia; F03.90 Unspecified dementia, unspecified severity, without behavioral disturbance, psychotic disturbance, mood disturbance, and anxiety; K74.60 Unspecified cirrhosis of liver; Z95.0 Presence of cardiac pacemaker; Z79.899 Other long term (current) drug therapy; Z79.01 Long term (current) use of anticoagulants

== ENCOUNTER → 2019-06-12 | Outpatient (CLI) | payer MEDICARE ==
[~2019-06-12] MED LIST changes: +ELIQUIS5 MG PO; +LANOXIN125 MCG PO; +LEVAQUIN 500 M500 M3 PO; +SORINE 80 MG TA80 M1 PO
[2019-06-12 12:11] LABS: ABSOLUTE EOSINOPHILS 0.1 thou/uL (0.0-0.7); ABSOLUTE LYMPHOCYTES 1.3 thou/uL (0.8-5.3); ABSOLUTE MONOCYTES 0.5 thou/uL (0.0-1.2); ABSOLUTE NEUTROPHILS 2.8 thou/uL (1.6-8.1); BASOPHILS 0.7 %; EOSINOPHILS 1.2 %; HEMATOCRIT 43.1 % (37.0-47.0); HEMOGLOBIN 14.7 gm/dL (12.0-15.0); LYMPHOCYTES 27.7 %; MCH 33.3 pg (26.0-34.0); MCHC 34.1 g/dL (28.0-37.0); MCV 97.7 fL (80.0-100.0); MONOCYTES 10.4 %; NUCLEATED RBCS 0 /100WBC; PLATELET COUNT* 64 thou/uL (150-400); RBC 4.41 mil/uL (4.20-5.00); RDW-CV 14.8 % (10.5-14.5); WBC 4.6 thou/uL (4.0-11.0)
[2019-06-12 12:21] LABS: CALCIUM 8.8 mg/dL (8.5-10.1); CREATININE 0.8 mg/dL (0.6-1.3); POTASSIUM 4.1 mmol/L (3.5-5.1)
[2019-06-12 12:23] LABS: APTT 26.3 Seconds (25.0-31.3); INR 1.2; PROTIME 12.5 Seconds (9.20-11.50)
[2019-06-13 18:09] LABS: BODY FLUID LDH 210 IU/L (()); BODY FLUID PROTEIN 4.9 g/dL (())
[2019-06-14 16:26] LABS: SOURCE THORACENTESIS
--- NOTE | 2019-06-17 16:56 | PATH ---
[address] [address] PATHOLOGY RPT PROCEDURE Name: GABE PHOENIX [id number] Admission: 06/12/19 Date of : 33 Discharge: Report #: [id number] Path Case #: [id number] Note [facility] Accession Number: [id number] TESTS RESULT FLAG UNITS REF RANGE LAB Clinician Provided Cytology Information No. 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 SEE COMMENT. THIS INTERPRETATION INCLUDES EVALUATION OF A CELL BLOCK. COMMENT Malignant cells present singly and in small groups occasionally suggesting gland formation are present in the ThinPrep and cell block. A panel of properly controlled immunohistochemical studies performed on the cell block shows the malignant cells to have the following characteristics supporting the diagnosis: TTF-1 - positive. Napsin - positive. CK7 - positive. CD20 - negative. P40 - negative. Per discussion with Dr. Cortes at approximately 1000 on 06/17/2019, he requests performance of the following molecular studies which will be the subject of separate reports: EGFR, ALK, ROS-1, and PDL1. Reviewed with Dr. Gerardo Fletcher who agrees with the diagnosis. (RIZWAN:justino; 06/17/2019) Signed out by: 02 Vincenzo Ernst MD, Pathologist NPI- [id number] Performed by: Kari Gilbert, Instruments Sales Representative ([facility]) Gross description: 30 ML, YELLOW, CLOUDY /LCS 06/13/2019 1349 Local FLAG LEGEND: L-Low Normal,H-High Normal,LL-Alert Low,HH-Alert High <-Panic Low,>-Panic High,A-Abnormal,AA-Critical Abnormal Performed at: 01 [facility] [address] [place] [address] Artemio Rothman MD, 02 [facility] [place] [address] PATHOLOGY RPT PROCEDURE Name: GABE PHOENIX Room: [facility] DEISY Pipo#: [id number] Admission: 06/12/19 Date of : 34 Discharge: Report #: [id number] Path Case #: [id number] [address] [place] [address] Vincenzo Ernst MD, Specimen Comment: A courtesy copy of this report has been sent to [phone] Specimen Comment: [id number] Specimen Comment: Report sent to Performed at: [address] [facility] [address], [place], [place] [id number] MD Artemio Rothman MD Phone: [phone]
== END | disposition home or self-care (01) ==
LOC: M.LAB 11:47 → M.ULTRA 13:00 → M.LAB 06-20 12:00
PROVIDERS: Internal Medicine Pulmonary Disease
DX: C34.91 Malignant neoplasm of unspecified part of right bronchus or lung (principal); J90 Pleural effusion, not elsewhere classified; R91.8 Other nonspecific abnormal finding of lung field; Z79.01 Long term (current) use of anticoagulants; Z79.899 Other long term (current) drug therapy; Z98.890 Other specified postprocedural states

== ENCOUNTER → 2019-07-08 | Outpatient (CLI) | payer MEDICARE | LOC: M.CT 12:42 | DX: C34.91 Malignant neoplasm of unspecified part of right bronchus or lung (principal); J90 Pleural effusion, not elsewhere classified; R91.8 Other nonspecific abnormal finding of lung field ==

== ENCOUNTER → 2019-09-17 | Outpatient (CLI) | payer MEDICARE | LOC: M.RAD 12:09 | DX: C34.31 Malignant neoplasm of lower lobe, right bronchus or lung (principal); J18.8 Other pneumonia, unspecified organism; J90 Pleural effusion, not elsewhere classified; I51.7 Cardiomegaly; Z95.0 Presence of cardiac pacemaker ==